=== PATIENT | female | born 1985 | race Caucasian/White ===

== ENCOUNTER 2021-04-17 08:53 | Emergency (ER) | payer OTHER, SELFPAY ==
[2021-04-17 09:44] VITALS: BP 140/89; PULSE 90; RESP 16; TEMP 36.5; O2SAT 96
--- NOTE | 2021-04-17 10:43 | ED_ITS ---
HPI - Back Pain/Injury General Chief Complaint: Back Pain/Injury Stated Complaint: back pain Time Seen by Provider: 04/17/21 10:42 Source: patient Mode of arrival: ambulatory Limitations: no limitations History of Present Illness HPI Narrative: right sided flank pain with increased pain. patient feels sudden pain when she moves the wrong way. Patient denied fever, dysuria, hematuria. Patient has increased pain with movement. She slept on the floor two nights ago. MD elicited complaint: back pain Onset (ago): day(s) Timing: constant Severity: mild Quality: aching Location: lumbar spine Associated symptoms: denies other symptoms Related Data Previous Rx's Medication Instructions Recorded cyclobenzaprine 10 mg tablet 10 mg PO TID #10 tab 04/17/21 naproxen 500 mg tablet (Naprosyn) 500 mg PO BID #20 tab 04/17/21 Allergies Allergy/AdvReac Type Severity Reaction Status Date / Time No Known Allergies Allergy Verified 04/17/21 09:44 Review of Systems Constitutional: Constitutional: Reports no additional constitutional complaints Eyes: Eyes: Reports no additional eye complaints ENT: Denies dizziness Cardiovascular: Cardiovascular: Reports no additional cardiovascular complaints Respiratory: Respiratory: Reports as per HPI Gastrointestinal: Gastrointestinal: Reports no additional gastrointestinal complaints Genitourinary: Genitourinary: Reports no additional female genitourinary complaints Musculoskeletal: Musculoskeletal: Reports no additional musculoskeletal complaints Integumentary/Breasts: Skin/Breast: Denies rash Neurologic: Reports system reviewed and no additional complaints, except as documented, Denies dizziness and Denies Sensory deficit (Neuro) Psychiatric: Psychiatric: Denies anxiety [facility] Past Medical History Medical History No known health problems Social History Social History Advance Directives: No Advance Directives Information Provided: Yes Patient : No Physical Exam Vital Signs: Vital Signs: Last Vital Signs Temp 97.7 F 04/17/21 09:44 Pulse 90 04/17/21 09:44 Resp 16 04/17/21 09:44 BP 140/89 H 04/17/21 09:44 Pulse Ox 96 04/17/21 09:44 Body Mass Index 0.0 Const: General: healthy appearing Nutritional Appearance: obese Orientation/consciousness: oriented to person and patient oriented x3 Limitations: no limitations HENMT: Head: Yes normal to inspection Ears: external ears normal General nose exam: Normal external nose present Mouth: Normal oral and palatal mucosa present and oropharynx normal Throat: Yes posterior oropharynx normal Eyes: General: appearance normal, both eyes and all related structures Neck: Other: supple Neck: Yes normal visual inspection Chest: Chest palpation & inspection: normal inspection of the chest Resp: Auscultation: clear to auscultation bilaterally Cardio: Jugular venous distension: no JVD Rate: regular rate Rhythm: regular rhythm Heart sounds: S1 normal heart sound present and S2 normal heart sound present GI: Inspection: Yes normal to inspection Palpation (GI): Soft to palpation, nontender and No hepatosplenomegaly present Auscultation: normal bowel sounds : General: Yes no CVA tenderness Back/Spine/Pelvis: Other: flank with slight pain to deep palpation but no pain to percussion. No SI or sciatic tenderness Back: no CVA tenderness Skin: General skin exam: no rashes or lesions noted Neuro: General: oriented to person and patient oriented x3 Cranial nerves: Yes CN's II-XII intact bilaterally Motor exam (neuro): 5/5 motor strength present throughout Sensory Exam: No Sensory deficit (Neuro) Extrem: General: Yes normal to inspection Psych: Appearance: grossly normal Course Reevaluation(s) Reevaluation #1: Ua and urine all normal will dc on NSAIDS and flexeril Time: 12:22 MDM - Back Pain/Injury Lab Data Labs: Lab Results 04/17/21 04/17/21 Range/Units 11:13 11:13 Urine Color YELLOW Urine Appearance CLEAR Urine pH 6.0 (5.0-8.0) Ur Specific [place] 1.015 (1.005-1.025) Urine Protein NEG (NEG-TRACE) MG/DL Urine Glucose (UA) NEG (NEG) MG/DL Urine Ketones NEG (NEG) MG/DL Urine Blood NEG (NEG) Urine Nitrite NEG (NEG) Ur Leukocyte Esterase NEG (NEG) Urine Test NEGATIVE (NEGATIVE) Discharge Plan Discharge Clinical Impression: Strain of lumbar region Qualifiers: Encounter type: initial encounter Qualified Code(s): S39.012A - Strain of muscle, fascia and tendon of lower back, initial encounter Patient Disposition: Home, Self-Care Instructions: Acute Low Back Pain (ED), Back Pain (ED) Prescriptions: New cyclobenzaprine 10 mg tablet 10 mg PO TID Qty: 10 RF: 0 naproxen [Naprosyn] 500 mg tablet 500 mg PO BID Qty: 20 RF: 0 Referrals: Physician,None [Primary Care Provider] - 1 week
[2021-04-17 11:21] LABS: Appearance Urine CLEAR; Color Urine YELLOW; Glucose Urine UA NEG (NEG); Leukocyte Esterase Urine NEG (NEG); Nitrite Urine NEG (NEG); Specific Gravity - Urine 1.015 (1.005-1.025); Urine Blood NEG (NEG); Urine Ketones NEG (NEG); Urine Protein NEG (NEG-TRACE)
[2021-04-17 11:22] LABS: UPreg QC Valid YES; Urine Pregnancy NEGATIVE (NEGATIVE)
== END 2021-04-17 12:28 | disposition home or self-care (01) ==
PROVIDERS: Emergency Provider Emergency Medicine
DX: S39.012A Strain of muscle, fascia and tendon of lower back, initial encounter (principal); X50.1XXA Overexertion from prolonged static or awkward postures, initial encounter; Y93.84 Activity, sleeping; Y92.039 Unspecified place in apartment as the place of occurrence of the external cause; Y99.9 Unspecified external cause status
CPT/HCPCS: 81003; 81025; 99283; 99284

== ENCOUNTER 2023-08-26 08:46 | Outpatient (AMB) | payer BC, SELFPAY ==
[2023-08-26 08:53] VITALS: BP 112/80; PULSE 91; TEMP 36.4; O2SAT 97; BMI 47.1
--- NOTE | 2023-08-26 08:53 | MHC.OFFWIV ---
Intake Vital Signs 08/26/23 08:53 Height 5 ft 8 in Weight 310 lb BMI 47.1 BP 112/80 Blood Pressure Location Lt brachial Position Sitting Pulse 91 Pulse Source Pulse Oximeter Temp 97.6 F Temp Source Temporal Artery Scan Pulse Oximetry (%) 97 Oxygen Delivery Method Room Air Intake Visit Reasons: EP Fever/?UTI Intake Note: pt is here today for fever and UTI started 3 days ago Patient Tobacco Use Status: Current everyday Tobacco user Allergies No Known Allergies Allergy (Verified 08/26/23 09:03) Do you need a note to return to daycare/school/sports/work: Yes HPI HPI Comments History of Present Illness Details Patient presents to the walk-in today for sick visit Reports 3 days, accompanied by some burning with urination Denies abdominal pain, back pain, hematuria, nausea, vomiting, diarrhea, incontinence or urinary retention Does not thermometer, but states has felt hot to the touch Denies vaginal discharge, chance of concern for STI PFSH Medical History No known health problems Social History Patient Tobacco Use Status: Current everyday Tobacco user Review of Systems Const All systems reviewed & are unremarkable except as noted in HPI and below Physical Exam Vital Signs: Last Vital Signs Temp 97.6 F 08/26/23 08:53 Pulse 91 08/26/23 08:53 BP 150/100 H 08/26/23 08:53 Pulse Ox 97 08/26/23 08:53 Oxygen Delivery Method Room Air 08/26/23 08:53 BMI result Body Mass Index 47.1 General: awake, alert, oriented. Answers questions appropriately. Fully engaged in examination. Skin: warm, dry, intact HEENT: Normocephalic. Hearing intact. Cardiac: External chest normal in appearance. RRR Respiratory: No cough, audible wheezing or stridor. Abdomen: without gross distension. Negative guarding. Nontender to palpation. Negative CVA tenderness MS: No obvious swelling or deformities. Neurological: Oriented to person, place, time and situation. Thought process intact. No gait abnormalities appreciated. Psychiatric: Appropriate mood and affect. Good judgment and insight. Results Reviewed Results Reviewed: UA reviewed fallen 3+ leuks, negative nitrites, negative blood, negative ketones, negative glucose, negative protein Assessment & Plan Assessment & Plan (1) UTI (urinary tract infection): Code(s): N39.0 - Urinary tract infection, site not specified Plan Macrobid 100 mg p.o. b.i.d. x7 days Increase fluid intake. Avoid intercourse until completion of antibiotics and resolution of symptoms. Follow-up with PCP or return to walk-in for any new, worsening or persistent symptoms. Medications: New nitrofurantoin monohyd/m-cryst 100 mg (Macrobid) must administer with a meal/food 100 mg PO Q12H 7 days 14 caps 0RF Coding Level of Care Code Est Pt Level 3 (47276) Diagnoses UTI (urinary tract infection) N39.0
== END 2023-08-26 10:00 | disposition home or self-care (01) ==
PROVIDERS: Visit Provider Registered Nurse Emergency
DX: N39.0 Urinary tract infection, site not specified (principal); R30.9 Painful micturition, unspecified
CPT/HCPCS: 81003; 99213

== ENCOUNTER 2024-01-12 12:22 | Emergency (ER) | payer BC, SELFPAY ==
[2024-01-12 12:42] VITALS: BP 127/82; PULSE 74; RESP 18; TEMP 36.9; O2SAT 100; BMI 48.8
--- NOTE | 2024-01-12 12:42 | ED_ITS ---
HPI - Ear Problem General Chief complaint: Ear Problems Stated complaint: RT ear pain Time Seen by Provider: 01/12/24 12:44 Source: patient, RN notes reviewed and old records reviewed Mode of arrival: ambulatory History of Present Illness ED Provider: Samantha Alonso PA-C HPI Narrative: 38-year-old female with no significant past medical history presenting to the ED complaining of blocked right ear times few weeks. Reports recent URI symptoms. Denies fever at present, drainage from ear, hearing loss, sore throat, cough Related Data Previous Rx's ?Medication ?Instructions ?Recorded albuterol sulfate 90 mcg/actuation 1 inh inhalation QID PRN shortness 12/04/21 aerosol inhaler of breath or wheezing #6.7 grams nitrofurantoin 100 mg PO Q12H 7 days #14 caps 08/26/23 monohydrate/macrocrystals 100 mg capsule (Macrobid) amoxicillin 875 mg-potassium 1 tab PO BID 7 days #14 tabs 01/12/24 clavulanate 125 mg tablet fluticasone propionate 50 2 spray intranasal DAILY #16 grams 01/12/24 mcg/actuation nasal spray,suspension (Flonase Allergy Relief) Allergies Allergy/AdvReac Type Severity Reaction Status Date / Time No Known Allergies Allergy Verified 01/12/24 12:44 Review of Systems Review of Systems: Constitutional: No Fever, No Chills ENT/Mouth: + Ear Pain, No Nasal Congestion, No Sinus Pain, No Hoarseness, No sore throat, No Rhinorrhea, No Swallowing Difficulty Cardiovascular: No Chest Pain, No SOB Respiratory: No Cough, No Wheezing Gastrointestinal: No Nausea, No Vomiting, No Abdominal pain Musculoskeletal: No joint pain, No Myalgias, No Joint Swelling Skin: No Skin Lesions, No rash Neuro: No Weakness Yes all other systems are reviewed and are negative Constitutional: Constitutional: Reports as per [facility] Past Medical History Attestation statement: The following information was validated with the patient. Source: old records reviewed Medical History No known health problems Social History Social History Patient Tobacco Use Status: Current everyday Tobacco user Advance Directives: No Advance Directives Information Provided: No Physical Exam Vital Signs: Vital Signs: Last Vital Signs Temp 98.5 F 01/12/24 13:05 Pulse 74 01/12/24 13:05 Resp 18 01/12/24 13:05 BP 127/82 01/12/24 13:05 Pulse Ox 100 01/12/24 13:05 O2 Del Method Room Air 01/12/24 13:05 BMI result Body Mass Index 48.8 Const: General: cooperative, healthy appearing and no acute distress Orientation/consciousness: patient oriented x3 Limitations: no limitations HEENT: Head: Yes normal to inspection and Yes atraumatic Ears: hearing grossly normal bilaterally, mastoids normal and TM abnormal erythematous on the right and with fluid behind the TM on the right; not bulging, not with effusion and with no loss of landmarks General nose exam: Normal external nose present Face and sinus: Yes normal facial exam Mouth: Normal oral and palatal mucosa present Throat: Yes posterior oropharynx normal, Yes tonsils normal, Yes uvula midline, No peritonsillar mass, No uvula laterally displaced and No uvular edema Eyes: General: appearance normal, both eyes and all related structures EOM: EOMs intact bilaterally Neck: Neck: Yes normal visual inspection and Yes no meningeal signs Resp: Effort & Inspection: normal respiratory effort, not labored and no respiratory distress Cardio: Rate: regular rate Skin: Rashes: no rashes Wounds: no wounds Neuro: General: patient oriented x3, tone normal and no meningeal signs Cranial nerves: Yes CN's II-XII intact bilaterally Gait exam (Neuro): Normal gait present Extrem: General: Yes normal to inspection Medical Decision Making Medical Decision Making MDM Narrative: 38-year-old female with no significant past medical history presenting to the ED complaining of blocked right ear times few weeks. On exam vital signs stable, NAD, nontoxic appearing, fluid noted behind right TM with mild erythema. Mastoids WNL, oropharynx WNL, respiratory distress. Exam consistent with otitis media. Low suspicion for mastoiditis, no evidence of [employer]/retropharyngeal abscess Plan: P.o. antibiotics, PCP follow-up Please refer to course for remaining clinical decision making, interpretation of labs/imaging results, and discussions with consultants and/or family members. Results discussed with patient including worrisome signs and symptoms and strict return precautions, and when to return to the emergency department. They verbalized understanding and feel safe for discharge at this time. Differential Diagnosis Differential Diagnoses: The differential diagnosis associated with the presentation includes As above External Record Review External record reviewed: Inpatient record, Office record, Outpatient record, Prior outpatient labs, Prior outpatient radiology, Primary care record and Outside ED record Tests considered The following testing was considered but not selected: As above Prescription Management I considered prescription management with: Pain Medication and Antibiotic Discharge Plan Discharge Clinical Impression: Otitis media Patient Disposition: Home, Self-Care Instructions: Ear Infection (ED) Additional Instructions: You have an inner ear infection. Please take antibiotics until completion Follow-up with your doctor If symptoms persist or worsen or pain becomes unbearable return to the ED Prescriptions: New amoxicillin-pot clavulanate 875-125 mg tablet 1 tab PO BID 7 Days Qty: 14 0RF fluticasone propionate [Flonase Allergy Relief] 50 mcg/actuation spray,suspension 2 spray intranasal DAILY Qty: 16 0RF Rx Instructions: administer into each nostril No Action albuterol sulfate 90 mcg/actuation HFA aerosol inhaler 1 inh inhalation QID PRN (Reason: shortness of breath or wheezing) Qty: 6.7 1RF nitrofurantoin monohyd/m-cryst [Macrobid] 100 mg capsule 100 mg PO Q12H 7 Days Qty: 14 0RF Rx Instructions: must administer with a meal/food Referrals: Physician,Unknown J [Primary Care Provider] - Interventions: ED Discharge Assessment Last Done: 01/12/24 13:05 Discharge Date/Time: 01/12/24 13:05 Print Language: Green[place]ic
[2024-01-12 13:05] VITALS: BP 127/82; PULSE 74; RESP 18; TEMP 36.9; O2SAT 100
== END 2024-01-12 13:05 | disposition home or self-care (01) ==
LOC: HO.ED 12:55
PROVIDERS: Emergency Provider Emergency Medicine
DX: H66.91 Otitis media, unspecified, right ear (principal); H92.01 Otalgia, right ear
CPT/HCPCS: 99282

== ENCOUNTER 2024-01-31 16:10 | Emergency (ER) | payer BC, SELFPAY ==
--- NOTE | ~2024-01-31 | XR_ITS ---
EXAMINATION: XR CHEST CLINICAL INFORMATION: Cough COMPARISON: None available. TECHNIQUE: 2 views of the chest were obtained. FINDINGS: Cardiac and mediastinal silhouette is within normal limits. Lungs are symmetrically expanded. Pulmonary vasculature is within normal limits. There is mild hazy opacities in bilateral lower lungs. This may reflect inflammatory or infectious process. No pleural effusion. No pulmonary edema. No pneumothorax. Mild thoracic spine degeneration.. XR/XR chest 2V IMPRESSION: Bibasilar hazy opacities may reflect inflammatory/infectious process. Electronically signed by: Curtis Hand MD 01/31/2024 06:39 PM EDT
[2024-01-31 16:51] VITALS: BP 155/94; PULSE 90; RESP 18; TEMP 36.8; O2SAT 98; BMI 48.4
--- NOTE | 2024-01-31 16:51 | ED_ITS ---
HPI - General Adult General Chief complaint: Ear Problems Stated complaint: L ear blocked, antibiotic no work, Chest congestio Time Seen by Provider: 01/31/24 18:27 Source: patient Mode of arrival: ambulatory Limitations: no limitations History of Present Illness ED Provider: Taty Montesinos PA-C HPI narrative: Patient is a 38 year old assigned female at with no reported medical hist ory presenting to the emergency department today with left ear pain and a cough. Patient states that she was seen on 01/12/2024 for her right ear and was told she had a right ear infection. Patient states that she took her antibiotic as prescribed and now her left ear hurts. Patient states that she is still having a cough as well. Patient denies any dizziness, lightheadedness, abdominal pain, nausea, vomiting, fever, chills, blurry vision, double vision, loss of vision, chest pain, difficulty breathing, shortness of breath, back pain, night sweats, pain with urination, increased urinary frequency, increased urinary urgency, blood in her urine or stool, syncope or a near syncopal episode, recent trauma or falls, bowel incontinence, bladder incontinence, or any other complaints at this time. Relieving factors: none Exacerbating factors: none Associated symptoms: cough Treatments prior to arrival: none Related Data Previous Rx's ?Medication ?Instructions ?Recorded albuterol sulfate 90 mcg/actuation 1 inh inhalation QID PRN shortness 12/04/21 aerosol inhaler of breath or wheezing #6.7 grams nitrofurantoin 100 mg PO Q12H 7 days #14 caps 08/26/23 monohydrate/macrocrystals 100 mg capsule (Macrobid) amoxicillin 875 mg-potassium 1 tab PO BID 7 days #14 tabs 01/12/24 clavulanate 125 mg tablet fluticasone propionate 50 2 spray intranasal DAILY #16 grams 01/12/24 mcg/actuation nasal spray,suspension (Flonase Allergy Relief) albuterol sulfate 90 mcg/actuation 1 inh inhalation QID PRN shortness 01/31/24 aerosol inhaler of breath or wheezing #8.5 grams benzonatate 100 mg capsule 100 mg PO BID PRN cough 7 days #14 01/31/24 caps doxycycline hyclate 100 mg tablet 100 mg PO BID 7 days #14 tabs 01/31/24 prednisone 20 mg tablet 20 mg PO DAILY 7 days #7 tabs 01/31/24 Allergies Allergy/AdvReac Type Severity Reaction Status Date / Time No Known Allergies Allergy Verified 01/31/24 16:52 Review of Systems Constitutional: Constitutional: Reports no additional constitutional complaints, Denies chills, Denies fever(s) and Denies night sweats Eyes: Eyes: Reports no additional eye complaints, Denies blurry vision, Denies change in vision, Denies diplopia, Denies eye discharge, Denies loss of vision and Denies eye pain ENT: Denies dizziness Comments: left ear pain Cardiovascular: Cardiovascular: Reports no additional cardiovascular complaints, Denies chest pain, Denies lightheadedness, Denies Loss of Consciousness and Denies dyspnea Respiratory: Respiratory: Reports no additional respiratory complaints, Reports cough and Denies dyspnea Gastrointestinal: Gastrointestinal: Reports no additional gastrointestinal complaints, Denies abdominal pain, Denies melena, Denies hematochezia, Denies change in bowel habits and Denies change in stool character Genitourinary: Genitourinary: Denies hematuria, Denies urinary frequency, Denies dysuria, Denies urinary incontinence, Denies urinary hesitancy and Denies urinary urgency Musculoskeletal: Musculoskeletal: Reports no additional musculoskeletal complaints, Denies numbness and Denies tingling Neurologic: Denies dizziness, Denies loss of vision, Denies numbness and Denies tingling Psychiatric: Psychiatric: Reports no additional psychiatric complaints Endocrine: Endocrine: Reports no additional endocrine complaints Hematologic/Lymphatic: Hematologic/Lymphatic: Reports no additional hematologic/lymphatic complaints Allergic/Immunologic: Allergic/Immunologic: Reports no additional allergic/immunologic complaints PMFSH Past Medical History Attestation statement: The following information was validated with the patient. Source: old records reviewed and nursing notes reviewed Medical History No known health problems Social History Social History Patient Tobacco Use Status: Current everyday Tobacco user Advance Directives: No Advance Directives Information Provided: No Do you have a plan to hurt others: No Plan Physical Exam ED Vital Signs: Vital Signs - 24 hr 01/31/24 16:51 01/31/24 18:30 Temperature 98.2 F 0 F L Pulse Rate 90 0 L Respiratory Rate 18 18 Blood Pressure 155/94 H 00/00 L Pulse Oximetry 98 0 L Oxygen Delivery Method Room Air BMI result Body Mass Index 48.4 Const General: cooperative, no acute distress, alert and awake Nutritional Appearance: well nourished Orientation/consciousness: patient oriented x3 Limitations: no limitations HENMT Head: Yes normal to inspection and Yes atraumatic Ears: hearing grossly normal bilaterally, external ears normal and TM normal on the left General nose exam: Normal external nose present, no nasal discharge noted and no epistaxis Face and sinus: Yes normal facial exam, No abrasion and No laceration Mouth: Normal oral and palatal mucosa present, no drooling and no muffled voice Eyes General: appearance normal, both eyes and all related structures Periorbital: periorbital findings normal Eyelids: Yes eyelids normal Conjunctivae: conjunctivae normal Pupils: Equal, round and reactive pupils present EOM: EOMs intact bilaterally Neck Neck: Yes normal visual inspection, Yes full ROM and Yes no lymphadenopathy Chest Chest palpation & inspection: normal inspection of the chest Resp Effort & Inspection: normal respiratory effort and able to speak in complete sentences GI Inspection: Yes normal to inspection Neuro General: patient oriented x3 and moves all extremities Cranial nerves: Yes Equal, round and reactive pupils present Cognition (Neuro): normal cognition Extrem General: Yes normal to inspection, Yes full ROM and Yes capillary refill normal Psych Appearance: grossly normal Mental Status: mental status grossly normal Affect: normal affect Attitude: cooperative Thought process: Normal thought process present Thought content: Normal thought content present Insight: Good insight present (Psych) Course Course Course Narrative: RME performed by Taty Montesinos PA-C. Patient is a 38 year old assigned female at presenting to the emergency department with left ear pain / blocking and a cough / chest congestion. Detailed physical exam and review of systems are deferred to the service crew supervisor. Imaging and swabs ordered. Patient placed back in the waiting room pending room availability and results. Medical Decision Making Medical Decision Making MDM Narrative: Patient is a 38 year old assigned female at with no reported medical history presenting to the emergency department today with left ear pain and a cough. Patient's physical exam showed a normal left ear exam - no evidence of infection. Patient sounded congested though denied any nasal congestion. Patient's chest x-ray showed bibasilar opacities that may reflect an inflammatory / infectious process. Patient's COVID-19, influenza, and RSV tests were negative. I explained my physical exam findings as well as all test results to the patient. I answered all questions asked by the patient. I stressed the importance of the patient taking her medication as directed (either prescribed or as the over the counter packaging recommends). I stressed the importance of the patient following up with her primary care provider. I stressed the importance of the patient returning to the emergency department immediately if her symptoms were to worsen or if she were to develop any dizziness, shortness of breath, difficulty breathing, chest pain, blurry vision, loss of vision, nausea, vomiting, abdominal pain, fever, chills, back pain, or any other complaints. Patient verbalized agreement and understanding with this treatment plan and discharge. Differential Diagnosis Differential Diagnoses: The differential diagnosis associated with the presentation includes Sinusitis PNA Cough Viral illness Admission/Observation Consideration of admission/observation: Escalation of care including admission/observation considered Patient would have been admitted to the hospital had her work up had any findings where hospital admission was appropriate and her clinical presentation warranted hospital admission. Lab Data [facility] Lab Attestation statement: I reviewed the patient's lab results. My interpretation of these results are in the MDM Rationale portion of this note. Labs: Lab Results 01/31/24 Range/Units 17:13 Influenza Type A (PCR) NEGATIVE (Negative) Influenza Type B (PCR) NEGATIVE (Negative) RSV RNA Qual (PCR) NEGATIVE (Negative) SARS-CoV-2 RNA (RT-PCR) NEGATIVE (Negative) Independent Interpretation I performed an independent interpretation of an: Plain X-Ray Interpretation: My interpretation is in agreement with the radiologist's impression of this imaging study. EXAMINATION: XR CHEST CLINICAL INFORMATION: Cough COMPARISON: None available. TECHNIQUE: 2 views of the chest were obtained. FINDINGS: Cardiac and mediastinal silhouette is within normal limits. Lungs are symmetrically expanded. Pulmonary vasculature is within normal limits. There is mild hazy opacities in bilateral lower lungs. This may reflect inflammatory or infectious process. No pleural effusion. No pulmonary edema. No pneumothorax. Mild thoracic spine degeneration.. XR/XR chest 2V IMPRESSION: Bibasilar hazy opacities may reflect inflammatory/infectious process. Electronically signed by: Curtis Hand MD 01/31/2024 06:39 PM EDT RP Dictated By: Curtis Hand MD Signed By: Electronically signed by Curtis Hand MD 01/31/24 8229 Radiology Impression Discussion of test interpretation with radiology: I have reviewed the radiologist's reading. Prescription Management I considered prescription management with: Antibiotic (patient prescribed an antibiotic for her sinusitis ) Discharge Plan Discharge Clinical Impression: Cough, Sinusitis Patient Disposition: Home, Self-Care Instructions: Sinusitis (ED), Acute Cough (ED) Additional Instructions: Follow up with your primary care provider. Return to the emergency department immediately if your symptoms worsen or if you develop any dizziness, shortness of breath, difficulty breathing, chest pain, blurry vision, loss of vision, nausea, vomiting, abdominal pain, fever, chills, back pain, or any other complaints. Prescriptions: New benzonatate 100 mg capsule 100 mg PO BID PRN (Reason: cough) 7 Days Qty: 14 0RF doxycycline hyclate 100 mg tablet 100 mg PO BID 7 Days Qty: 14 0RF prednisone 20 mg tablet 20 mg PO DAILY 7 Days Qty: 7 0RF albuterol sulfate 90 mcg/actuation HFA aerosol inhaler 1 inh inhalation QID PRN (Reason: shortness of breath or wheezing) Qty: 8.5 0RF No Action amoxicillin-pot clavulanate 875-125 mg tablet 1 tab PO BID 7 Days Qty: 14 0RF fluticasone propionate [Flonase Allergy Relief] 50 mcg/actuation spray,suspension 2 spray intranasal DAILY Qty: 16 0RF Rx Instructions: administer into each nostril albuterol sulfate 90 mcg/actuation HFA aerosol inhaler 1 inh inhalation QID PRN (Reason: shortness of breath or wheezing) Qty: 6.7 1RF nitrofurantoin monohyd/m-cryst [Macrobid] 100 mg capsule 100 mg PO Q12H 7 Days Qty: 14 0RF Rx Instructions: must administer with a meal/food Referrals: [facility] Family Medicine [Provider Group] (Call to establish and follow up with a primary care provider. If you already have a primary care provider, please follow up with them.) [facility] Primary Care, [facility] [Provider Group] (Call to establish and follow up with a primary care provider. If you already have a primary care provider, please follow up with them.) [facility] Primary [facility] [Provider Group] (Call to establish and follow up with a primary care provider. If you already have a primary care provider, please follow up with them.) Stand Alone Forms: Work/School Release Interventions: ED Discharge Assessment Last Done: 01/31/24 18:30 Discharge Date/Time: 01/31/24 18:32 Print Language: Serbian
[2024-01-31 17:54] LABS: Influenza A PCR NEGATIVE (Negative); Influenza B PCR NEGATIVE (Negative); Resp Syncy Virus RNA Qual PCR NEGATIVE (Negative); SARS COV2 PCR INHOUSE NEGATIVE (Negative)
[2024-01-31 18:30] VITALS: BP 00/00; PULSE 0; RESP 18; TEMP -17.7; TEMP 0; O2SAT 0
== END 2024-01-31 18:32 | disposition home or self-care (01) ==
PROVIDERS: Physician Assistant Medical; Emergency Provider Internal Medicine
DX: R05.9 Cough, unspecified (principal); J32.9 Chronic sinusitis, unspecified; Z03.818 Encounter for observation for suspected exposure to other biological agents ruled out
CPT/HCPCS: 0241U; 71046; 99282; 99283

== ENCOUNTER 2024-09-13 13:37 | Emergency (ER) | payer BC, SELFPAY ==
--- NOTE | ~2024-09-13 | XR_ITS ---
CLINICAL HISTORY: cough, SOB Chest Radiographs, 2 views Comparison: None Findings: No cardiomegaly. Normal mediastinal contours. No pneumothorax. No opacity. No pleural effusion. Normal upper abdomen. No acute fracture. Impression: No acute findings. This document has been electronically signed by: Lina Elkins MD on 09/13/2024 15:04:10
[2024-09-13 14:06] VITALS: BP 139/77; PULSE 84; RESP 18; TEMP 36.9; O2SAT 96; BMI 40.9
--- NOTE | 2024-09-13 14:07 | ED.URI ---
HPI - URI/Sore Throat General Chief Complaint: Upper Respiratory Symptoms Stated Complaint: chest cold Time Seen by Provider: 09/13/24 14:31 Source: patient, RN notes reviewed and old records reviewed Mode of arrival: ambulatory Limitations: no limitations History of Present Illness ED Provider: Angela CEDILLO Narrative: Patient is a 38-year-old female presenting to the emergency department with complaint of cough and shortness of breath as well as wheezing since Saturday. Had a telehealth visit on Saturday and started taking prednisone at that time. Also prescribed benzonatate. She reports some relief but reports ongoing wheezing. Reports fevers on Saturday and Saturday but none since. Denies chest pain or palpitations. MD elicited complaint: cough Related Data Previous Rx's ?Medication ?Instructions ?Recorded albuterol sulfate 90 mcg/actuation 1 inh inhalation QID PRN shortness 12/04/21 aerosol inhaler of breath or wheezing #6.7 grams nitrofurantoin 100 mg PO Q12H 7 days #14 caps 08/26/23 monohydrate/macrocrystals 100 mg capsule (Macrobid) amoxicillin 875 mg-potassium 1 tab PO BID 7 days #14 tabs 01/12/24 clavulanate 125 mg tablet fluticasone propionate 50 2 spray intranasal DAILY #16 grams 01/12/24 mcg/actuation nasal spray,suspension (Flonase Allergy Relief) albuterol sulfate 90 mcg/actuation 1 inh inhalation QID PRN shortness 01/31/24 aerosol inhaler of breath or wheezing #8.5 grams benzonatate 100 mg capsule 100 mg PO BID PRN cough 7 days #14 01/31/24 caps doxycycline hyclate 100 mg tablet 100 mg PO BID 7 days #14 tabs 01/31/24 prednisone 20 mg tablet 20 mg PO DAILY 7 days #7 tabs 01/31/24 albuterol sulfate 90 mcg/actuation 2 puff inhalation Q4-6H PRN 09/13/24 aerosol inhaler shortness of breath or wheezing #6.7 grams azithromycin 250 mg tablet See Rx Instructions PO .COMPLEX #6 09/13/24 tabs Allergies Allergy/AdvReac Type Severity Reaction Status Date / Time No Known Allergies Allergy Verified 09/13/24 14:09 Review of Systems Review of Systems: As per HPI Yes all other systems are reviewed and are negative Constitutional: Constitutional: Reports as per [facility] Past Medical History Medical History No known health problems Social History Social History Patient Tobacco Use Status: Current everyday Tobacco user Advance Directives: No Advance Directives Information Provided: Yes Physical Exam Vital Signs: Vital Signs: Last Vital Signs Temp 98.4 F 09/13/24 14:06 Pulse 84 09/13/24 14:06 Resp 18 09/13/24 14:06 BP 139/77 09/13/24 14:06 Pulse Ox 96 09/13/24 14:06 O2 Del Method Room Air 09/13/24 14:06 BMI result Body Mass Index 40.9 Vital signs have been reviewed and appear to be correct. Blood pressure normal. Heart rate normal. Respiratory rate normal. Temperature normal. Oxygen saturation normal. Const: General: cooperative, healthy appearing and no acute distress Orientation/consciousness: oriented to person, oriented to place, oriented to time and patient oriented x3 Limitations: no limitations HEENT: Head: Yes normocephalic and Yes atraumatic Ears: external ears normal General nose exam: Normal external nose present Face and sinus: Yes face symmetric Mouth: oropharynx normal and moist mucous membranes Throat: Yes uvula midline Eyes: Pupils: Equal, round and reactive pupils present Neck: Neck: Yes normal visual inspection and Yes supple Resp: Effort & Inspection: normal respiratory effort and able to speak in complete sentences Auscultation: clear to auscultation bilaterally and wheezes scattered wheezes Cardio: Rate: regular rate Rhythm: regular rhythm Heart sounds: S1 normal heart sound present and S2 normal heart sound present GI: Palpation (GI): Soft to palpation and nontender Auscultation: normoactive bowel sounds : General: Yes no CVA tenderness Back/Spine/Pelvis: Back: no CVA tenderness Skin: General skin exam: elasticity normal and turgor normal Neuro: General: oriented to person, oriented to place, oriented to time, patient oriented x3, moves all extremities, no focal motor deficits and CN's II-XI intact bilaterally Cranial nerves: Yes Equal, round and reactive pupils present Cognition (Neuro): normal cognition Extrem: General: Yes full ROM, Yes no pedal edema and Yes no calf tenderness Psych: Mental Status: mental status grossly normal Affect: normal affect Thought process: Normal thought process present Course Course Course Narrative: This is an RME performed by Yuniel Vaca CNP: Additional HPI, ROS, PE not included below will be deferred to primary provider. Patient is a 38-year-old presents emergency department for evaluation of cold symptoms x1 week, had a telehealth appointment prescribed a 5 day course of prednisone, taking last dose today. Still experiencing shortness of breath, cough which has not improved since taking benzonatate. She states symptoms have improved but still not completely resolved. Plan: Viral serologies, XR Medical Decision Making Medical Decision Making [facility] Narrative: Patient is a 38-year-old female presenting to the emergency department with complaint of cough and shortness of breath as well as wheezing since Saturday. On exam patient is awake, A+Ox3, VS WNL, afebrile, normal neurological exam without focal deficits, physical exam findings as above. Given reported symptoms and physical exam findings, initial differential includes but is not limited to viral illness, COVID, flu, RSV, bronchitis, pneumonia. Viral panel negative. X-ray chest notable for no evidence of pneumonia. My interpretation is in agreement with the radiologist's interpretation. Patient updated on results and all questions answered. Will treat with azithromycin and albuterol inhaler. Instructed patient follow-up with primary care provider. Return precautions discussed. Patient verbalized understanding of and agreement with plan. Differential Diagnosis Differential Diagnoses: The differential diagnosis associated with the presentation includes as per [facility] Admission/Observation Consideration of admission/observation: Escalation of care including admission/observation considered Patient would have been admitted to the hospital had their work up had any findings where hospital admission was appropriate and their clinical presentation warranted hospital admission. Lab Data [facility] Lab Attestation statement: I reviewed the patient's lab results. as per [facility] Labs: Lab Results 09/13/24 Range/Units 14:14 Influenza Type A (PCR) NEGATIVE (Negative) Influenza Type B (PCR) NEGATIVE (Negative) RSV RNA Qual (PCR) NEGATIVE (Negative) SARS-CoV-2 RNA (RT-PCR) NEGATIVE (Negative) Independent Interpretation I performed an independent interpretation of an: Plain X-Ray Interpretation: No evidence of pneumonia on chest x-ray Radiology Impression Discussion of test interpretation with radiology: I have reviewed the radiologist's reading. Radiologist Impression: Chest Radiographs, 2 views Comparison: None Findings: No cardiomegaly. Normal mediastinal contours. No pneumothorax. No opacity. No pleural effusion. Normal upper abdomen. No acute fracture. Impression: No acute findings. External Record Review External record reviewed: Inpatient record, Office record and Outpatient record Prescription Management I considered prescription management with: Antibiotic and Other Discharge Plan Discharge Clinical Impression: Bronchitis Patient Disposition: Home, Self-Care Instructions: How to Use a Metered-Dose Inhaler (ED), Acute Bronchitis (ED) Additional Instructions: You were evaluated in the emergency department today for cough and shortness of breath. You are being treated for bronchitis with an antibiotic, please complete the full course as prescribed. You are being prescribed an inhaler which you can use every 4-6 hours as needed for shortness of breath. Please follow-up with your primary care provider this week. Return to the emergency department if you develop worsening shortness of breath, difficulty breathing, chest pain, fever not improved with Tylenol or ibuprofen, or any other concerning symptoms. Prescriptions: New albuterol sulfate 90 mcg/actuation HFA aerosol inhaler 2 puff inhalation Q4-6H PRN (Reason: shortness of breath or wheezing) Qty: 6.7 0RF azithromycin 250 mg tablet See Rx Instructions .ROUTE .COMPLEX Qty: 6 0RF Rx Instructions: For 250 mg dose pack: take 500 mg today (day 1), then 250 mg for 4 days (days 2-5) No Action benzonatate 100 mg capsule 100 mg PO BID PRN (Reason: cough) 7 Days Qty: 14 0RF doxycycline hyclate 100 mg tablet 100 mg PO BID 7 Days Qty: 14 0RF prednisone 20 mg tablet 20 mg PO DAILY 7 Days Qty: 7 0RF albuterol sulfate 90 mcg/actuation HFA aerosol inhaler 1 inh inhalation QID PRN (Reason: shortness of breath or wheezing) Qty: 8.5 0RF amoxicillin-pot clavulanate 875-125 mg tablet 1 tab PO BID 7 Days Qty: 14 0RF fluticasone propionate [Flonase Allergy Relief] 50 mcg/actuation spray,suspension 2 spray intranasal DAILY Qty: 16 0RF Rx Instructions: administer into each nostril albuterol sulfate 90 mcg/actuation HFA aerosol inhaler 1 inh inhalation QID PRN (Reason: shortness of breath or wheezing) Qty: 6.7 1RF nitrofurantoin monohyd/m-cryst [Macrobid] 100 mg capsule 100 mg PO Q12H 7 Days Qty: 14 0RF Rx Instructions: must administer with a meal/food Stand Alone Forms: Work/School Release Print Language: Malawian
[2024-09-13 14:54] LABS: Influenza A PCR NEGATIVE (Negative); Influenza B PCR NEGATIVE (Negative); Resp Syncy Virus RNA Qual PCR NEGATIVE (Negative); SARS COV2 PCR INHOUSE NEGATIVE (Negative)
[2024-09-13 15:54] VITALS: BP 129/73; PULSE 81; RESP 16; TEMP 36.3; O2SAT 93
[2024-09-13 16:05] VITALS: BP 129/73; PULSE 81; RESP 16; TEMP 36.3; O2SAT 93
== END 2024-09-13 16:05 | disposition home or self-care (01) ==
PROVIDERS: Nurse Practitioner Family; Emergency Provider Emergency Medicine Emergency Medical Services
DX: J40 Bronchitis, not specified as acute or chronic (principal); R05.9 Cough, unspecified; R06.02 Shortness of breath; Z03.818 Encounter for observation for suspected exposure to other biological agents ruled out
CPT/HCPCS: 0241U; 71046; 99283; 99284

== ENCOUNTER → 2024-09-13 14:10 | Outpatient (BNV) | payer BC, SELFPAY | PROVIDERS: Emergency Provider Emergency Medicine Emergency Medical Services; Visit Provider Radiology Diagnostic Radiology | DX: R05.9 Cough, unspecified (principal); R06.02 Shortness of breath | CPT/HCPCS: 71046 ==

== ENCOUNTER 2024-10-05 13:12 | Emergency (ER) | payer BC, SELFPAY ==
[2024-10-05 13:23] VITALS: BP 164/99; PULSE 84; RESP 18; TEMP 36.3; O2SAT 99; BMI 51.3
--- NOTE | 2024-10-05 13:44 | ED.GENADULT ---
HPI - General Adult General Chief complaint: Extremity Injury, Lower Stated complaint: R Foot Pain X 3 Days Time Seen by Provider: 10/05/24 13:44 Source: patient, RN notes reviewed and old records reviewed Mode of arrival: ambulatory Limitations: no limitations History of Present Illness ED Provider: David HPI narrative: 39-year-old female presents for evaluation of right foot pain. The patient reports that she broke her ankle /lower leg about 7 years ago and required surgical fixation. She reports that she damage many of the ligaments on the floor as well. She reports 3 days ago she had some minor pain in her right lateral foot while standing and walking denies any calf pain or swelling. She does have some chronic swelling to the right lateral ankle in the area of her previous surgery denies any history of DVT, she is not anticoagulated, denies any recent travel Related Data Previous Rx's ?Medication ?Instructions ?Recorded albuterol sulfate 90 mcg/actuation 1 inh inhalation QID PRN shortness 12/04/21 aerosol inhaler of breath or wheezing #6.7 grams nitrofurantoin 100 mg PO Q12H 7 days #14 caps 08/26/23 monohydrate/macrocrystals 100 mg capsule (Macrobid) amoxicillin 875 mg-potassium 1 tab PO BID 7 days #14 tabs 01/12/24 clavulanate 125 mg tablet fluticasone propionate 50 2 spray intranasal DAILY #16 grams 01/12/24 mcg/actuation nasal spray,suspension (Flonase Allergy Relief) albuterol sulfate 90 mcg/actuation 1 inh inhalation QID PRN shortness 01/31/24 aerosol inhaler of breath or wheezing #8.5 grams benzonatate 100 mg capsule 100 mg PO BID PRN cough 7 days #14 01/31/24 caps doxycycline hyclate 100 mg tablet 100 mg PO BID 7 days #14 tabs 01/31/24 prednisone 20 mg tablet 20 mg PO DAILY 7 days #7 tabs 01/31/24 albuterol sulfate 90 mcg/actuation 2 puff inhalation Q4-6H PRN 09/13/24 aerosol inhaler shortness of breath or wheezing #6.7 grams azithromycin 250 mg tablet See Rx Instructions PO .COMPLEX #6 09/13/24 tabs Allergies Allergy/AdvReac Type Severity Reaction Status Date / Time No Known Allergies Allergy Verified 10/05/24 13:25 Review of Systems Constitutional: Constitutional: Denies body ache(s), Denies chills, Denies fever(s) and Denies headache(s) ENT: Denies vertigo, Denies dizziness and Denies headache(s) Cardiovascular: Cardiovascular: Denies chest pain and Denies dyspnea Respiratory: Respiratory: Denies cough and Denies dyspnea Gastrointestinal: Gastrointestinal: Denies abdominal pain Musculoskeletal: Musculoskeletal: Denies back pain, Reports arthralgias, Reports joint swelling, Reports limited range of motion and Reports stiffness Integumentary/Breasts: Skin/Breast: Denies rash Neurologic: Denies vertigo, Denies dizziness and Denies headache(s) Psychiatric: Psychiatric: Denies anxiety PMFSH Past Medical History Medical History No known health problems Social History Social History Patient Tobacco Use Status: Current everyday Tobacco user Advance Directives: No Advance Directives Information Provided: Yes Do you have a plan to hurt others: No Plan Physical Exam ED Vital Signs: Vital Signs - 24 hr 10/05/24 13:23 Temperature 97.3 F Pulse Rate 84 Respiratory Rate 18 Blood Pressure 164/99 H Pulse Oximetry 99 BMI result Body Mass Index 51.3 Const General: healthy appearing, comfortable, no acute distress, alert and awake Nutritional Appearance: well nourished Orientation/consciousness: patient oriented x3 HENMT Head: Yes normocephalic and Yes atraumatic Eyes Eyelids: Yes eyelids normal Conjunctivae: conjunctivae normal Sclerae: sclerae normal Corneas: corneas normal Pupils: Equal, round and reactive pupils present EOM: EOMs intact bilaterally Neck Neck: Yes full ROM Resp Effort & Inspection: normal respiratory effort, able to speak in complete sentences and not labored Skin General skin exam: no rashes or lesions noted and elasticity normal Neuro General: patient oriented x3 Cranial nerves: Yes Equal, round and reactive pupils present and Yes Bilaterally intact EOM present Cognition (Neuro): normal cognition Extrem Other: well-healed surgical scar to the right lateral ankle over the distal fibula and lateral malleolus. There was minimal right lateral ankle edema. He has no significant tenderness to the medial or lateral ankle. No calf tenderness or tenderness over the Achilles. there is minimal tenderness to the right lateral mid foot Medical Decision Making Medical Decision Making MDM Narrative: 39-year-old female presents for evaluation of right foot pain mostly. She does complain of right ankle pain. She has a previous injury but no recent injury. No risk factors for DVT, no calf pain, swelling or tenderness on exam. Negative Homans sign. I did discuss possible x-ray imaging versus DVT but did not feel that this is an actual emergency. The patient prefer to treat with symptomatic care and will follow up with outpatient providers. Differential Diagnosis Differential Diagnoses: The differential diagnosis associated with the presentation includes Hardware failure Arthritis Foot pain Plantar fasciitis Ankle pain Tendonitis Tests considered The following testing was considered but not selected: consider Ultrasound of the right lower extremity and x-ray of the right ankle and foot, but patient declines which I feel was appropriate Discharge Plan Discharge Clinical Impression: Ankle pain, right, Acute pain of right foot Patient Disposition: Home, Self-Care Instructions: Arthralgia (ED) Additional Instructions: I recommend avoiding walking or standing for long periods over the next few days. Use ibuprofen or Tylenol for pain. Follow up with Orthopedics at the number provided return for new or worsening symptoms Prescriptions: No Action benzonatate 100 mg capsule 100 mg PO BID PRN (Reason: cough) 7 Days Qty: 14 0RF doxycycline hyclate 100 mg tablet 100 mg PO BID 7 Days Qty: 14 0RF prednisone 20 mg tablet 20 mg PO DAILY 7 Days Qty: 7 0RF albuterol sulfate 90 mcg/actuation HFA aerosol inhaler 1 inh inhalation QID PRN (Reason: shortness of breath or wheezing) Qty: 8.5 0RF amoxicillin-pot clavulanate 875-125 mg tablet 1 tab PO BID 7 Days Qty: 14 0RF fluticasone propionate [Flonase Allergy Relief] 50 mcg/actuation spray,suspension 2 spray intranasal DAILY Qty: 16 0RF Rx Instructions: administer into each nostril albuterol sulfate 90 mcg/actuation HFA aerosol inhaler 2 puff inhalation Q4-6H PRN (Reason: shortness of breath or wheezing) Qty: 6.7 0RF azithromycin 250 mg tablet See Rx Instructions .ROUTE .COMPLEX Qty: 6 0RF Rx Instructions: For 250 mg dose pack: take 500 mg today (day 1), then 250 mg for 4 days (days 2-5) albuterol sulfate 90 mcg/actuation HFA aerosol inhaler 1 inh inhalation QID PRN (Reason: shortness of breath or wheezing) Qty: 6.7 1RF nitrofurantoin monohyd/m-cryst [Macrobid] 100 mg capsule 100 mg PO Q12H 7 Days Qty: 14 0RF Rx Instructions: must administer with a meal/food Referrals: [facility] [place] Orthopedic Surgeons [Provider Group] (right foot pain, previous surgery) Discharge Date/Time: 10/05/24 14:03 Print Language: Sami
== END 2024-10-05 14:03 | disposition home or self-care (01) ==
PROVIDERS: Emergency Provider Emergency Medicine Emergency Medical Services
DX: M25.571 Pain in right ankle and joints of right foot (principal); M79.671 Pain in right foot; R60.0 Localized edema
CPT/HCPCS: 99281; 99282

== ENCOUNTER 2025-02-15 08:42 | Outpatient (AMB) | payer BC, SELFPAY ==
--- NOTE | 2025-02-15 08:44 | MHC.OFFWIV ---
Intake Vital Signs 02/15/25 08:46 Height 5 ft 6 in Weight 310 lb BMI 50.0 BP 124/84 Blood Pressure Location Lt brachial Position Sitting Respiration 16 Pulse 92 Pulse Source Pulse Oximeter Temp 100.5 F H Temp Source Oral Pulse Oximetry (%) 96 Oxygen Delivery Method Room Air Intake Visit Reasons: EP fever since saturday, sore throat Patient Tobacco Use Status: Current everyday Tobacco user Accompanied by: Self / Same As Patient Allergies No Known Allergies Allergy (Verified 02/15/25 08:46) Medication List - Last Reconciled 02/15/25 by Lizz Barraza NP albuterol sulfate 90 mcg/actuation 2 puffs inhalation Q4-6H PRN amoxicillin-pot clavulanate 875-125 mg 1 tab PO BID 10 days ipratropium-albuterol 0.5 mg-3 mg(2.5 mg base)/3 mL 3 mL inhalation Q4-6H PRN prednisone 50 mg PO DAILY 5 days HPI HPI Comments History of Present Illness Details 39 y/o Female patient who presents to the walk in clinic with c/o Fevers, Body aches and Sore-Throat. Pt reports that symptoms started last week (Saturday) and she developed high fevers Saturday and Sore-throat Yesterday morning. She has been taking Advil for Fevers, with some relief. Denies Nausea or vomiting. Denies any headaches. [facility] Medical History (Updated 02/15/25 @ 09:46 by Lizz Barraza NP) Acute streptococcal pharyngitis Wheezing on auscultation No known health problems Social History Patient Tobacco Use Status: Current everyday Tobacco user Review of Systems Const All systems reviewed & are unremarkable except as noted in HPI and below Physical Exam Vital Signs: Last Vital Signs Temp 100.5 F H 02/15/25 08:46 Pulse 92 02/15/25 08:46 Resp 16 02/15/25 08:46 BP 124/84 02/15/25 08:46 Pulse Ox 96 02/15/25 08:46 Oxygen Delivery Method Room Air 02/15/25 08:46 BMI result Body Mass Index 50.0 Const General: no acute distress Nutritional Appearance: obese Orientation/consciousness: patient oriented x3 HEENT Head: Yes normocephalic Ears: external ears normal and TM abnormal bulging and with fluid behind the TM bilateral General nose exam: Nasal discharge present Face and sinus: Yes sinuses nontender Mouth: moist mucous membranes Throat: Yes uvula midline, Yes abnormal tonsil (Enlarged Tonsils +2) and Yes postnasal drainage Resp Effort & Inspection: normal respiratory effort and audible wheezes Auscultation: no crackles, no rales, rhonchi and wheezes Cardio Heart sounds: S1 normal heart sound present and S2 normal heart sound present Neuro General: patient oriented x3, gait normal and moves all extremities Psych Speech and movement: Normal speech and movement present Office Procedures Nebulizer Treatment Nebulizer Treatment [id number] RX initial, or Nebulizer Subsequent Treatment Office Meds ipratropium 0.5 mg-albuterol 3 mg (2.5 mg base)/3 mL nebulization soln Performing Provider: Lizz Barraza NP Performing Location: [facility] [place] [facility] Administered by: Lizz Barraza NP on 02/15/25 09:39 Dose Route Admin Location Dispensed Lot Number Expiration Date [facility] Mat Man 3 mL inhalation 3 mL Results AMB Rapid Strep AMB Rapid Strep Negative Last Edit by Ang Dietz CMA on 02/15/25 09:20 Results Reviewed Results Reviewed: Laboratory Last Values Strep Scn Rapid Clinic Negative 02/15/25 09:01 Assessment & Plan Assessment & Plan (1) Upper respiratory tract infection: Code(s): J06.9 - Acute upper respiratory infection, unspecified Qualifiers: Pharyngitis/tonsillitis etiology: streptococcus URI type: acute pharyngitis Qualified Code(s): J02.0 - Streptococcal pharyngitis Plan: Ordered In-office Neb Tx due to wheezing Will Tx Empirically for Pneumonia with PCN Ordered DuoNeb for home use. Ordered Prednisone for 5 days. Ordered SARs (2) Acute streptococcal pharyngitis: Code(s): J02.0 - Streptococcal pharyngitis Plan: Rapid Strep was Negative in office. Examination of Throat consists of Enlarged, erythematous Tonsils - tenderness. Will Tx Empirically for Strep. OTC sore-throat remedies. Rest at home and hydrate with warm fluids. Acetaminophen for pain relief. Orders: Orders SARS-CoV2/FLU/RSV Today Lizz Barraza NP J06.9 - Acute upper respiratory infection, unspecified AMB Nebulizer Treatment Today Lizz Barraza NP R06.2 - Wheezing AMB Rapid Strep Screen Today Dia Oneill PA-C Z13.9 - Encounter for screening, unspecified Medications: New amoxicillin-pot clavulanate 875-125 mg 1 tab PO BID 20 tabs 0RF 10 days Lizz Barraza NP J02.0 - Streptococcal pharyngitis ipratropium-albuterol 0.5 mg-3 mg(2.5 mg base)/3 mL 3 mL inhalation Q4-6H PRN 90 mL 0RF wheezing Lizz Barraza NP J02.0 - Streptococcal pharyngitis prednisone 50 mg PO DAILY 5 tabs 0RF 5 days Lizz Barraza NP J02.0 - Streptococcal pharyngitis Coding Level of Care Code Est Pt Level 4 (19025) Diagnoses Acute streptococcal pharyngitis J02.0 Pharyngitis/tonsillitis etiology: streptococcus URI type: acute pharyngitis Acute streptococcal pharyngitis J02.0 CPT Codes Nebulizer Treatment - Nebulizer Treatment, initial or subsequent: [id number] RX initial, or Nebulizer Subsequent Treatment ([id number]) Time Spent (min) 20
[2025-02-15 08:46] VITALS: BP 124/84; PULSE 92; RESP 16; TEMP 38.1; O2SAT 96; BMI 50.0
== END 2025-02-15 09:55 | disposition home or self-care (01) ==
PROVIDERS: Visit Provider Nurse Practitioner Family
DX: R06.2 Wheezing (principal); J02.0 Streptococcal pharyngitis; Z13.9 Encounter for screening, unspecified

== ENCOUNTER 2025-02-15 08:42 | Outpatient (REF) | payer BC, SELFPAY ==
[2025-02-15 13:05] LABS: Resp Syncy Virus RNA Qual PCR NEGATIVE (Negative); SARS COV2 PCR INHOUSE NEGATIVE (Negative)
== END 2025-02-15 08:43 | disposition home or self-care (01) ==
LOC: HO.LAB 08:42
PROVIDERS: Nurse Practitioner Family
DX: J02.0 Streptococcal pharyngitis (principal); R06.2 Wheezing; F17.200 Nicotine dependence, unspecified, uncomplicated
CPT/HCPCS: 87637; 87880; 94640